=== PATIENT | female | born 1935 | race Caucasian/White ===

== ENCOUNTER 2016-05-29 12:21 | Inpatient (IN) | payer MEDICARE, OTHER ==
[2016-05-29] MEDS ORDERED: LORazepam 0.5 MG Tab PO PRN (13:22)
[2016-05-29] MEDS ORDERED: ceFAZolin 1 GM Vial IV SCH (13:30)
[2016-05-29] MEDS: ceFAZolin 2 GM in Sodium Chloride 0.9% 100 ML IV SCH (16:14)
[2016-05-29] MEDS ORDERED: Sodium Chloride 0.9% 1,000 ML IV SCH (16:15)
[2016-05-29] MEDS: Loperamide 2 MG Cap PO PRN ×4 (16:24→22:55)
[2016-05-29] MEDS: Sodium Chloride 0.9% 10 ML Syringe FLUSH PRN (17:00)
[2016-05-29] MEDS: Aspirin 325 MG Tab.EC PO SCH (21:06)
[2016-05-30] MEDS: ceFAZolin 2 GM in Sodium Chloride 0.9% 100 ML IV SCH ×3 (00:03→15:49)
[2016-05-30] MEDS: Sodium Chloride 0.9% 10 ML Syringe FLUSH PRN ×2 (00:57→09:00)
[2016-05-30] MEDS: Loperamide 2 MG Cap PO PRN ×12 (01:00→23:22)
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
[2016-05-30] MEDS: Levothyroxine 75 MCG Tab PO SCH (05:05)
[2016-05-30] MEDS ORDERED: CHLORTHALIDONE PO SCH (09:00)
[2016-05-30] MEDS ORDERED: ATENOLOL PO SCH (09:00)
[2016-05-30] MEDS: Losartan 100 MG Tab PO SCH (09:31)
[2016-05-30] MEDS: Multivitamins, Therapeutic with Minerals Tab PO SCH (09:31)
[2016-05-30] MEDS: Chlorthalidone 25 MG Tab PO SCH (09:31)
[2016-05-30] MEDS: Cholestyramine/Sucrose Powder 4 GM Packet PO SCH (12:42)
[2016-05-30] MEDS ORDERED: Ondansetron 4 MG Tab.DIS PO PRN (17:54)
[2016-05-30] MEDS: Aspirin 325 MG Tab.EC PO SCH (21:36)
[2016-05-31] MEDS: Sodium Chloride 0.9% 250 ML IV SCH
[2016-05-31] MEDS: ceFAZolin 2 GM in Sodium Chloride 0.9% 100 ML IV SCH ×3 (00:06→15:50)
[2016-05-31] MEDS: Loperamide 2 MG Cap PO PRN ×5 (00:30→06:48)
[2016-05-31] MEDS: Sodium Chloride 0.9% 10 ML Syringe FLUSH PRN ×2 (00:53→22:07)
[2016-05-31] MEDS: Levothyroxine 75 MCG Tab PO SCH (06:10)
[2016-05-31] MEDS: Losartan 100 MG Tab PO SCH (08:10)
[2016-05-31] MEDS: Multivitamins, Therapeutic with Minerals Tab PO SCH (08:10)
[2016-05-31] MEDS: Chlorthalidone 25 MG Tab PO SCH (08:10)
--- NOTE | 2016-05-31 11:39 | PN ---
DATE SEEN: 05/31/2016 SUBJECTIVE: Shirin Lambert is an 80-year-old female, admitted to swing bed at [place]. She has endocarditis from a previous infected port, port is removed. She does have a central line in place, left arm. She is doing well, minimal pain, minimal discomfort, and ambulating without difficulty. Sugars have been comfortable, 93 and 112, we will keep her off her metformin. Present medications intravenously include cefazolin 2 grams q.8 hours. Other medications reviewed and appropriate. OBJECTIVE: VITAL SIGNS: Documented. GENERAL: In good spirits. CHEST: Clear. HEART: Regular. ABDOMEN: Benign. MUSCULOSKELETAL: Port site intact, right mid upper arm. ASSESSMENT: 1. Endocarditis, septicemia. 2. Metastatic colon cancer. PLAN: Intervention care. Close observation. Diarrhea is being addressed. We will stop the antidiarrheal, and we will add cholestyramine. Complementary care and well being. Withhold metformin in the meantime. /[id number] ELISEO/JESSICA
[2016-05-31] MEDS: Cholestyramine/Sucrose Powder 4 GM Packet PO SCH (11:44)
[2016-05-31] MEDS: Aspirin 325 MG Tab.EC PO SCH (20:20)
[2016-05-31] MEDS ORDERED: Lactated Ringers 1,000 ML IV SCH (21:30)
[2016-06-01] MEDS: ceFAZolin 2 GM in Sodium Chloride 0.9% 100 ML IV SCH ×4 (00:04→23:42)
[2016-06-01] MEDS: Saccharomyces Boulardii (Probiotic) 250 MG Cap PO SCH ×4 (00:50→20:49)
[2016-06-01] MEDS ORDERED: Lactated Ringers 1,000 ML IV SCH (01:45)
[2016-06-01] MEDS: Levothyroxine 75 MCG Tab PO SCH (07:12)
[2016-06-01] MEDS: Chlorthalidone 25 MG Tab PO SCH (08:33)
[2016-06-01] MEDS: Losartan 100 MG Tab PO SCH (08:33)
[2016-06-01] MEDS: Multivitamins, Therapeutic with Minerals Tab PO SCH (08:34)
[2016-06-01] MEDS ORDERED: Saccharomyces Boulardii (Probiotic) 250 MG Cap PO SCH (09:00)
--- NOTE | 2016-06-01 10:19 | PN ---
DATE SEEN: 06/01/2016 SUBJECTIVE: Shirin Lambert is an 80-year-old female, admitted for endocarditis and sepsis. Antibiotics will be required till June 22, 2015. Intractable complicated diarrhea presently in place. Imodium under concern due to the frequency and quantity. Required some IV fluids, last evening. LABORATORY STUDIES: On 06/01/2015, comfortable, white count 6500, 11.6 hemoglobin, 34.5 mild lymphocytosis, monocytosis, and normal electrolytes. Microbiology, negative Clostridium difficile present. OBJECTIVE: VITAL SIGNS: Blood pressure 146/87, 70 is the pulse, and pulse ox is 95% on room air. GENERAL: Appears comfortable. NECK: Benign. Thyroid small. CHEST: Clear. HEART: Regular. ABDOMEN: Benign. A bit distended. IMPRESSION: 1. Bacteremia, septicemia, endocarditis. 2. Metastatic colon cancer. PLAN: We will switch to a little bit of Lomotil versus Imodium, probiotic has been ordered. IV fluids will be discontinued. Observation accordingly. /[id number] ELISEO/JESSICA
[2016-06-01] MEDS: Cholestyramine/Sucrose Powder 4 GM Packet PO SCH (12:04)
[2016-06-01] MEDS: Atropine/Diphenoxylate 0.025-2.5 MG Tab PO PRN ×2 (13:15→20:50)
[2016-06-01] MEDS: Sodium Chloride 0.9% 250 ML IV SCH (16:00)
[2016-06-01] MEDS: Sodium Chloride 0.9% 10 ML Syringe FLUSH PRN (16:02)
[2016-06-01] MEDS: Aspirin 325 MG Tab.EC PO SCH (20:49)
[2016-06-02] MEDS: Sodium Chloride 0.9% 10 ML Syringe FLUSH PRN (00:38)
[2016-06-02] MEDS: Acetaminophen 325 MG Tab PO PRN ×2 (00:41→17:36)
[2016-06-02] MEDS: Levothyroxine 75 MCG Tab PO SCH (06:31)
[2016-06-02] MEDS: ceFAZolin 2 GM in Sodium Chloride 0.9% 100 ML IV SCH ×2 (08:13→16:10)
[2016-06-02] MEDS: Chlorthalidone 25 MG Tab PO SCH (08:17)
[2016-06-02] MEDS: Multivitamins, Therapeutic with Minerals Tab PO SCH (08:17)
[2016-06-02] MEDS: Saccharomyces Boulardii (Probiotic) 250 MG Cap PO SCH ×3 (08:17→20:12)
[2016-06-02] MEDS: Losartan 100 MG Tab PO SCH (08:17)
--- NOTE | 2016-06-02 11:26 | PN ---
DATE SEEN: 06/02/2016 SUBJECTIVE: Shirin Swenson is an 80-year-old female, admitted for long- term antibiotic therapy, 06/21/2016. She had an infected right port. Removed, packed daily, PICC line, right enterotomy. Complains of some moderate pain in the right shoulder region. OBJECTIVE: GENERAL: PICC line without complicating issue, not warm, nontender, no discharge. Previous port site right upper chest without complicating issues. CHEST: Clear. HEART: Regular. ABDOMEN: Benign. ASSESSMENT: 1. Right shoulder pain. 2. Endocarditis, sepsis. PLAN: Medications and treatment in place, we will obtain x-rays of the right shoulder. /[id number] ELISEO/JESSICA
[2016-06-02] MEDS: Cholestyramine/Sucrose Powder 4 GM Packet PO SCH (12:31)
[2016-06-02] MEDS: Aspirin 325 MG Tab.EC PO SCH (20:11)
[2016-06-02] MEDS: Acetaminophen/Codeine 300-30 MG Tab PO PRN (21:16)
[2016-06-03] MEDS: ceFAZolin 2 GM in Sodium Chloride 0.9% 100 ML IV SCH ×2 (00:13→08:28)
[2016-06-03] MEDS: Acetaminophen/Codeine 300-30 MG Tab PO PRN (00:39)
[2016-06-03] MEDS ORDERED: Ondansetron 4 MG/2 ML SDV IVPUSH PRN (05:35)
[2016-06-03] MEDS ORDERED: HYDROmorphone 2 MG/ML SDV IVPUSH PRN (05:38)
[2016-06-03] MEDS: Levothyroxine 75 MCG Tab PO SCH (05:52)
[2016-06-03] MEDS: HYDROmorphone 2 MG/ML SDV IVPUSH PRN (05:54)
[2016-06-03] MEDS: Sodium Chloride 0.9% 10 ML Syringe FLUSH PRN ×2 (05:55→17:14)
[2016-06-03] MEDS: Chlorthalidone 25 MG Tab PO SCH (09:14)
[2016-06-03] MEDS: Losartan 100 MG Tab PO SCH (09:14)
[2016-06-03] MEDS: Saccharomyces Boulardii (Probiotic) 250 MG Cap PO SCH ×3 (09:16→20:44)
[2016-06-03] MEDS: Multivitamins, Therapeutic with Minerals Tab PO SCH (09:17)
[2016-06-03] MEDS: HYDROmorphone 2 MG Tab PO PRN ×3 (09:30→19:18)
--- NOTE | 2016-06-03 10:30 | CR ---
INDICATION: Right shoulder pain. RIGHT SHOULDER: Five views of the right shoulder revealed moderately severe hypertrophic degenerative changes at the glenohumeral joint. The glenohumeral joint space appears to be fairly well maintained. Moderate degenerative changes are noted at the AC joint additionally. The degenerative changes include subchondral cystic changes and sclerosis. Additionally, there is impingement with sclerosis of the undersurface of the acromion and adjacent humerus due to impingement of the humerus on the acromion. The areas of sclerosis present are most likely degenerative in nature. The possibility of blastic metastatic disease is felt to be much less likely. PICC line is noted in place with its tip in adequate position at the level of the aortopulmonary window in the area of the SVC. IMPRESSION: Osteoarthritis with impingement. Report was called to Dr. Fay at 0941 hours, 06/03/2016. YOVANA
[2016-06-03] MEDS: Cholestyramine/Sucrose Powder 4 GM Packet PO SCH (13:04)
[2016-06-03] MEDS: ceFAZolin 2 GM in Premix Bag 1 BAG IV SCH (16:23)
[2016-06-03] MEDS: Aspirin 325 MG Tab.EC PO SCH (20:44)
[2016-06-04] MEDS: Levothyroxine 75 MCG Tab PO SCH (06:07)
[2016-06-04] MEDS: HYDROmorphone 2 MG/ML SDV IVPUSH PRN (07:36)
[2016-06-04] MEDS: Sodium Chloride 0.9% 10 ML Syringe FLUSH PRN ×3 (07:37→16:52)
[2016-06-04] MEDS: ceFAZolin 2 GM in Premix Bag 1 BAG IV SCH ×4 (07:37→16:05)
[2016-06-04] MEDS: Chlorthalidone 25 MG Tab PO SCH (09:59)
[2016-06-04] MEDS: Losartan 100 MG Tab PO SCH (10:00)
[2016-06-04] MEDS: Multivitamins, Therapeutic with Minerals Tab PO SCH (10:01)
[2016-06-04] MEDS: Saccharomyces Boulardii (Probiotic) 250 MG Cap PO SCH ×3 (10:01→21:29)
[2016-06-04] MEDS: Acetaminophen/Codeine 300-30 MG Tab PO PRN ×2 (11:23→17:35)
--- NOTE | 2016-06-04 12:38 | PN ---
DATE SEEN: 06/04/2016 SUBJECTIVE: Shirin Lambert is an 80-year-old female, in swing bed. IV antibiotics for endocarditis. [place] some right shoulder pain. Radiographs reveal degenerative changes only. No signs of metastatic disease. We will plan for injection tomorrow, 06/06/2015. Risks and benefits accordingly. Otherwise, doing well. We will discontinue Dilaudid and switch to Tylenol with Codeine for pain control. Cooperative care and well being. Exam otherwise stable. /[id number] /HANNAHL
[2016-06-04] MEDS: Cholestyramine/Sucrose Powder 4 GM Packet PO SCH (12:56)
[2016-06-04] MEDS: Aspirin 325 MG Tab.EC PO SCH (21:29)
[2016-06-04] MEDS: Nystatin Crm 15 GM Tube TOP SCH (22:11)
[2016-06-05] MEDS: ceFAZolin 2 GM in Premix Bag 1 BAG IV SCH ×3 (00:15→15:56)
[2016-06-05] MEDS: Sodium Chloride 0.9% 250 ML IV SCH (00:21)
[2016-06-05] MEDS: Sodium Chloride 0.9% 10 ML Syringe FLUSH PRN ×2 (01:09→08:06)
[2016-06-05] MEDS: Levothyroxine 75 MCG Tab PO SCH (06:07)
[2016-06-05] MEDS: Nystatin Crm 15 GM Tube TOP SCH ×2 (10:09→21:08)
[2016-06-05] MEDS: Chlorthalidone 25 MG Tab PO SCH (10:11)
[2016-06-05] MEDS: Losartan 100 MG Tab PO SCH (10:16)
[2016-06-05] MEDS: Saccharomyces Boulardii (Probiotic) 250 MG Cap PO SCH ×3 (10:16→21:08)
[2016-06-05] MEDS: Multivitamins, Therapeutic with Minerals Tab PO SCH (10:17)
--- NOTE | 2016-06-05 12:01 | PN ---
DATE SEEN: 06/05/2016 SUBJECTIVE: Shirin Lambert is an 80-year-old female, seen in swing bed. IV antibiotics for endocarditis, doing well. Complicated left shoulder pain. Injection to be performed and provided today at right shoulder. Otherwise, doing well. No other particular complaints or concerns. OBJECTIVE: CHEST: Clear. HEART: Regular. ABDOMEN: Reproducible, tenderness over the shoulder particularly with abduction of the shoulder. ASSESSMENT: 1. Endocarditis, on therapy until June 21. 2. Shoulder pain. PLAN: Injection upcoming and planned. /[id number] /JESSICA
[2016-06-05] MEDS: Cholestyramine/Sucrose Powder 4 GM Packet PO SCH (13:23)
[2016-06-05] MEDS: Aspirin 325 MG Tab.EC PO SCH (21:08)
[2016-06-06] MEDS: Sodium Chloride 0.9% 250 ML IV SCH ×2 (00:08→08:12)
[2016-06-06] MEDS: ceFAZolin 2 GM in Premix Bag 1 BAG IV SCH ×3 (00:10→16:07)
[2016-06-06] MEDS: Sodium Chloride 0.9% 10 ML Syringe FLUSH PRN ×3 (00:59→16:08)
[2016-06-06] MEDS: Levothyroxine 75 MCG Tab PO SCH (06:10)
[2016-06-06] MEDS: Chlorthalidone 25 MG Tab PO SCH (08:17)
[2016-06-06] MEDS: Losartan 100 MG Tab PO SCH (08:18)
[2016-06-06] MEDS: Nystatin Crm 15 GM Tube TOP SCH ×2 (08:18→20:35)
[2016-06-06] MEDS: Saccharomyces Boulardii (Probiotic) 250 MG Cap PO SCH ×3 (08:18→20:34)
[2016-06-06] MEDS: Multivitamins, Therapeutic with Minerals Tab PO SCH (08:19)
--- NOTE | 2016-06-06 10:25 | PN ---
DATE SEEN: 06/06/2016 Shirin Lambert is an 80-year-old female, admitted for antibiotic therapy. She had endocarditis, positive blood cultures, infected port, is on a 1-month course of therapy. Antibiotics until 06/21. We injected the right shoulder yesterday, feels much better pain control. Continue with cooperative care and well being. Home health referral for palliative care under consideration. /[id number] ELISEO/JESSICA
[2016-06-06] MEDS: Cholestyramine/Sucrose Powder 4 GM Packet PO SCH (14:55)
[2016-06-06] MEDS: Aspirin 325 MG Tab.EC PO SCH (20:34)
[2016-06-07] MEDS: ceFAZolin 2 GM in Premix Bag 1 BAG IV SCH ×3 (00:19→16:28)
[2016-06-07] MEDS: Sodium Chloride 0.9% 10 ML Syringe FLUSH PRN ×2 (01:10→07:57)
[2016-06-07] MEDS: Levothyroxine 75 MCG Tab PO SCH (05:34)
[2016-06-07] MEDS: Sodium Chloride 0.9% 250 ML IV SCH (07:58)
[2016-06-07] MEDS: Losartan 100 MG Tab PO SCH (08:03)
[2016-06-07] MEDS: Multivitamins, Therapeutic with Minerals Tab PO SCH (08:03)
[2016-06-07] MEDS: Chlorthalidone 25 MG Tab PO SCH (08:04)
[2016-06-07] MEDS: Nystatin Crm 15 GM Tube TOP SCH ×2 (08:04→20:22)
[2016-06-07] MEDS: Saccharomyces Boulardii (Probiotic) 250 MG Cap PO SCH ×3 (08:04→20:21)
[2016-06-07] MEDS: Cholestyramine/Sucrose Powder 4 GM Packet PO SCH (13:15)
[2016-06-07] MEDS: Aspirin 325 MG Tab.EC PO SCH (20:21)
[2016-06-08] MEDS: ceFAZolin 2 GM in Premix Bag 1 BAG IV SCH ×3 (00:18→15:48)
[2016-06-08] MEDS: Sodium Chloride 0.9% 10 ML Syringe FLUSH PRN ×2 (00:21→08:06)
[2016-06-08] MEDS: Levothyroxine 75 MCG Tab PO SCH (06:31)
[2016-06-08] MEDS: Saccharomyces Boulardii (Probiotic) 250 MG Cap PO SCH ×3 (08:04→20:11)
[2016-06-08] MEDS: Multivitamins, Therapeutic with Minerals Tab PO SCH (08:04)
[2016-06-08] MEDS: Chlorthalidone 25 MG Tab PO SCH (08:05)
[2016-06-08] MEDS: Nystatin Crm 15 GM Tube TOP SCH ×2 (08:05→20:12)
[2016-06-08] MEDS: Losartan 100 MG Tab PO SCH (08:06)
[2016-06-08] MEDS: Sodium Chloride 0.9% 250 ML IV SCH (08:07)
[2016-06-08] MEDS: Cholestyramine/Sucrose Powder 4 GM Packet PO SCH (12:11)
[2016-06-08] MEDS: Aspirin 325 MG Tab.EC PO SCH (20:11)
[2016-06-09] MEDS: ceFAZolin 2 GM in Premix Bag 1 BAG IV SCH ×4 (00:56→23:36)
[2016-06-09] MEDS: Sodium Chloride 0.9% 10 ML Syringe FLUSH PRN ×3 (01:02→23:40)
[2016-06-09] MEDS: Levothyroxine 75 MCG Tab PO SCH (06:02)
[2016-06-09] MEDS: Chlorthalidone 25 MG Tab PO SCH (08:11)
[2016-06-09] MEDS: Multivitamins, Therapeutic with Minerals Tab PO SCH (08:11)
[2016-06-09] MEDS: Losartan 100 MG Tab PO SCH (08:11)
[2016-06-09] MEDS: Nystatin Crm 15 GM Tube TOP SCH ×2 (08:12→21:06)
[2016-06-09] MEDS: Saccharomyces Boulardii (Probiotic) 250 MG Cap PO SCH ×3 (08:12→21:03)
[2016-06-09] MEDS: Sodium Chloride 0.9% 250 ML IV SCH (08:13)
[2016-06-09] MEDS: Acetaminophen/Codeine 300-30 MG Tab PO PRN ×2 (11:19→23:41)
[2016-06-09] MEDS: Cholestyramine/Sucrose Powder 4 GM Packet PO SCH (12:09)
[2016-06-09] MEDS: Triamcinolone Acetonide 0.1% Dental Paste 5 GM Tube DENT SCH ×3 (12:39→21:06)
[2016-06-09] MEDS: Aspirin 325 MG Tab.EC PO SCH (21:03)
[2016-06-10] MEDS: Levothyroxine 75 MCG Tab PO SCH (06:40)
[2016-06-10] MEDS: Sodium Chloride 0.9% 10 ML Syringe FLUSH PRN ×3 (06:52→16:50)
[2016-06-10] MEDS: ceFAZolin 2 GM in Premix Bag 1 BAG IV SCH ×2 (08:23→16:47)
[2016-06-10] MEDS: Sodium Chloride 0.9% 250 ML IV SCH (08:23)
[2016-06-10] MEDS: Multivitamins, Therapeutic with Minerals Tab PO SCH (08:37)
[2016-06-10] MEDS: Saccharomyces Boulardii (Probiotic) 250 MG Cap PO SCH ×3 (08:37→20:59)
[2016-06-10] MEDS: Losartan 100 MG Tab PO SCH (08:37)
[2016-06-10] MEDS: Chlorthalidone 25 MG Tab PO SCH (08:38)
[2016-06-10] MEDS: Triamcinolone Acetonide 0.1% Dental Paste 5 GM Tube DENT SCH ×4 (08:38→21:01)
[2016-06-10] MEDS: Nystatin Crm 15 GM Tube TOP SCH ×2 (08:38→21:00)
[2016-06-10] MEDS: Cholestyramine/Sucrose Powder 4 GM Packet PO SCH (12:54)
[2016-06-10] MEDS: Acetaminophen/Codeine 300-30 MG Tab PO PRN (19:46)
[2016-06-10] MEDS: Aspirin 325 MG Tab.EC PO SCH (21:00)
[2016-06-11] MEDS: ceFAZolin 2 GM in Premix Bag 1 BAG IV SCH ×4 (00:30→23:36)
[2016-06-11] MEDS: Sodium Chloride 0.9% 10 ML Syringe FLUSH PRN ×4 (01:41→23:37)
[2016-06-11] MEDS: Levothyroxine 75 MCG Tab PO SCH (06:31)
[2016-06-11] MEDS: Sodium Chloride 0.9% 250 ML IV SCH (09:00)
[2016-06-11] MEDS: Chlorthalidone 25 MG Tab PO SCH (09:07)
[2016-06-11] MEDS: Saccharomyces Boulardii (Probiotic) 250 MG Cap PO SCH ×3 (09:08→20:15)
[2016-06-11] MEDS: Multivitamins, Therapeutic with Minerals Tab PO SCH (09:08)
[2016-06-11] MEDS: Losartan 100 MG Tab PO SCH (09:08)
[2016-06-11] MEDS: Triamcinolone Acetonide 0.1% Dental Paste 5 GM Tube DENT SCH ×4 (09:09→20:16)
[2016-06-11] MEDS: Nystatin Crm 15 GM Tube TOP SCH ×2 (10:03→20:15)
[2016-06-11] MEDS: Cholestyramine/Sucrose Powder 4 GM Packet PO SCH (12:59)
[2016-06-11] MEDS: Aspirin 325 MG Tab.EC PO SCH (20:15)
[2016-06-11] MEDS: Acetaminophen/Codeine 300-30 MG Tab PO PRN (22:40)
[2016-06-12] MEDS: Sodium Chloride 0.9% 10 ML Syringe FLUSH PRN ×4 (00:29→23:57)
[2016-06-12] MEDS: Levothyroxine 75 MCG Tab PO SCH (05:53)
[2016-06-12] MEDS: Sodium Chloride 0.9% 250 ML IV SCH (07:48)
[2016-06-12] MEDS: ceFAZolin 2 GM in Premix Bag 1 BAG IV SCH ×3 (07:50→23:58)
[2016-06-12] MEDS: Triamcinolone Acetonide 0.1% Dental Paste 5 GM Tube DENT SCH ×4 (08:49→20:11)
[2016-06-12] MEDS: Nystatin Crm 15 GM Tube TOP SCH ×2 (08:49→20:11)
[2016-06-12] MEDS: Losartan 100 MG Tab PO SCH (08:49)
[2016-06-12] MEDS: Chlorthalidone 25 MG Tab PO SCH (08:50)
[2016-06-12] MEDS: Saccharomyces Boulardii (Probiotic) 250 MG Cap PO SCH ×3 (08:50→20:10)
[2016-06-12] MEDS: Multivitamins, Therapeutic with Minerals Tab PO SCH (08:51)
[2016-06-12] MEDS: Cholestyramine/Sucrose Powder 4 GM Packet PO SCH (13:00)
[2016-06-12] MEDS: Aspirin 325 MG Tab.EC PO SCH (20:10)
[2016-06-13] MEDS: Sodium Chloride 0.9% 10 ML Syringe FLUSH PRN ×3 (00:50→15:37)
[2016-06-13] MEDS: Levothyroxine 75 MCG Tab PO SCH (06:12)
[2016-06-13] MEDS: ceFAZolin 2 GM in Premix Bag 1 BAG IV SCH ×2 (08:07→15:36)
[2016-06-13] MEDS: Chlorthalidone 25 MG Tab PO SCH (08:08)
[2016-06-13] MEDS: Losartan 100 MG Tab PO SCH (08:08)
[2016-06-13] MEDS: Nystatin Crm 15 GM Tube TOP SCH ×2 (08:09→21:32)
[2016-06-13] MEDS: Triamcinolone Acetonide 0.1% Dental Paste 5 GM Tube DENT SCH ×4 (08:09→21:33)
[2016-06-13] MEDS: Saccharomyces Boulardii (Probiotic) 250 MG Cap PO SCH ×3 (08:09→21:32)
[2016-06-13] MEDS: Multivitamins, Therapeutic with Minerals Tab PO SCH (08:10)
[2016-06-13] MEDS: Sodium Chloride 0.9% 250 ML IV SCH (08:13)
[2016-06-13] MEDS: Cholestyramine/Sucrose Powder 4 GM Packet PO SCH (11:39)
[2016-06-13] MEDS: Acetaminophen/Codeine 300-30 MG Tab PO PRN (20:50)
[2016-06-13] MEDS: Aspirin 325 MG Tab.EC PO SCH (21:31)
[2016-06-14] MEDS: ceFAZolin 2 GM in Premix Bag 1 BAG IV SCH ×4 (00:04→23:57)
[2016-06-14] MEDS: Sodium Chloride 0.9% 10 ML Syringe FLUSH PRN ×6 (00:10→23:55)
[2016-06-14] MEDS: Levothyroxine 75 MCG Tab PO SCH (07:29)
[2016-06-14] MEDS: Sodium Chloride 0.9% 250 ML IV SCH (08:40)
[2016-06-14] MEDS: Losartan 100 MG Tab PO SCH (08:50)
[2016-06-14] MEDS: Saccharomyces Boulardii (Probiotic) 250 MG Cap PO SCH ×3 (08:51→21:02)
[2016-06-14] MEDS: Nystatin Crm 15 GM Tube TOP SCH ×2 (08:52→21:02)
[2016-06-14] MEDS: Triamcinolone Acetonide 0.1% Dental Paste 5 GM Tube DENT SCH ×5 (08:52→21:03)
[2016-06-14] MEDS: Chlorthalidone 25 MG Tab PO SCH (08:52)
[2016-06-14] MEDS: Multivitamins, Therapeutic with Minerals Tab PO SCH (08:53)
[2016-06-14] MEDS: Cholestyramine/Sucrose Powder 4 GM Packet PO SCH (12:23)
[2016-06-14] MEDS: Aspirin 325 MG Tab.EC PO SCH (21:01)
[2016-06-14] MEDS: Acetaminophen/Codeine 300-30 MG Tab PO PRN (23:00)
[2016-06-15] MEDS: Levothyroxine 75 MCG Tab PO SCH (06:16)
[2016-06-15] MEDS: ceFAZolin 2 GM in Premix Bag 1 BAG IV SCH ×3 (08:12→23:33)
[2016-06-15] MEDS: Sodium Chloride 0.9% 250 ML IV SCH (08:12)
[2016-06-15] MEDS: Sodium Chloride 0.9% 10 ML Syringe FLUSH PRN ×3 (08:12→23:31)
[2016-06-15] MEDS: Multivitamins, Therapeutic with Minerals Tab PO SCH (08:19)
[2016-06-15] MEDS: Losartan 100 MG Tab PO SCH (08:19)
[2016-06-15] MEDS: Chlorthalidone 25 MG Tab PO SCH (08:20)
[2016-06-15] MEDS: Saccharomyces Boulardii (Probiotic) 250 MG Cap PO SCH ×3 (08:20→20:45)
[2016-06-15] MEDS: Nystatin Crm 15 GM Tube TOP SCH (08:20)
[2016-06-15] MEDS: Triamcinolone Acetonide 0.1% Dental Paste 5 GM Tube DENT SCH (08:21)
[2016-06-15] MEDS: Cholestyramine/Sucrose Powder 4 GM Packet PO SCH (11:50)
[2016-06-15] MEDS: Aspirin 325 MG Tab.EC PO SCH (20:45)
[2016-06-15] MEDS: Betamethasone Dipropionate/Clotrimazole 0.05-1% Crm 15 GM Tube TOP SCH (23:06)
[2016-06-16] MEDS: Sodium Chloride 0.9% 10 ML Syringe FLUSH PRN ×6 (00:24→23:54)
[2016-06-16] MEDS: Levothyroxine 75 MCG Tab PO SCH (06:26)
[2016-06-16] MEDS: Sodium Chloride 0.9% 250 ML IV SCH (07:40)
[2016-06-16] MEDS: ceFAZolin 2 GM in Premix Bag 1 BAG IV SCH ×3 (07:40→23:57)
[2016-06-16] MEDS: Losartan 100 MG Tab PO SCH (08:34)
[2016-06-16] MEDS: Multivitamins, Therapeutic with Minerals Tab PO SCH (08:34)
[2016-06-16] MEDS: Saccharomyces Boulardii (Probiotic) 250 MG Cap PO SCH ×3 (08:35→21:47)
[2016-06-16] MEDS: Betamethasone Dipropionate/Clotrimazole 0.05-1% Crm 15 GM Tube TOP SCH ×2 (08:35→21:48)
[2016-06-16] MEDS: Chlorthalidone 25 MG Tab PO SCH (08:35)
[2016-06-16] MEDS: Cholestyramine/Sucrose Powder 4 GM Packet PO SCH (11:22)
[2016-06-16] MEDS: Aspirin 325 MG Tab.EC PO SCH (21:45)
[2016-06-16] MEDS: Acetaminophen/Codeine 300-30 MG Tab PO PRN (21:53)
[2016-06-17] MEDS: Levothyroxine 75 MCG Tab PO SCH (06:12)
[2016-06-17] MEDS: Sodium Chloride 0.9% 250 ML IV SCH (08:05)
[2016-06-17] MEDS: ceFAZolin 2 GM in Premix Bag 1 BAG IV SCH ×3 (08:05→23:43)
[2016-06-17] MEDS: Sodium Chloride 0.9% 10 ML Syringe FLUSH PRN ×3 (08:05→23:40)
[2016-06-17] MEDS: Chlorthalidone 25 MG Tab PO SCH (08:58)
[2016-06-17] MEDS: Losartan 100 MG Tab PO SCH (08:59)
[2016-06-17] MEDS: Saccharomyces Boulardii (Probiotic) 250 MG Cap PO SCH ×3 (08:59→21:29)
[2016-06-17] MEDS: Betamethasone Dipropionate/Clotrimazole 0.05-1% Crm 15 GM Tube TOP SCH (09:00)
[2016-06-17] MEDS: Multivitamins, Therapeutic with Minerals Tab PO SCH (09:01)
[2016-06-17] MEDS: Cholestyramine/Sucrose Powder 4 GM Packet PO SCH (13:31)
[2016-06-17] MEDS: Aspirin 325 MG Tab.EC PO SCH (21:29)
[2016-06-17] MEDS: Betamethasone Dipropionate/Clotrimazole 0.05-1% Crm 45 GM Tube TOP SCH (21:30)
[2016-06-18] MEDS: Levothyroxine 75 MCG Tab PO SCH (05:55)
[2016-06-18] MEDS: Sodium Chloride 0.9% 10 ML Syringe FLUSH PRN ×2 (08:50→17:34)
[2016-06-18] MEDS: ceFAZolin 2 GM in Premix Bag 1 BAG IV SCH ×3 (08:51→23:39)
[2016-06-18] MEDS: Sodium Chloride 0.9% 250 ML IV SCH (08:51)
[2016-06-18] MEDS: Chlorthalidone 25 MG Tab PO SCH (09:07)
[2016-06-18] MEDS: Losartan 100 MG Tab PO SCH (09:07)
[2016-06-18] MEDS: Saccharomyces Boulardii (Probiotic) 250 MG Cap PO SCH ×3 (09:08→21:30)
[2016-06-18] MEDS: Multivitamins, Therapeutic with Minerals Tab PO SCH (09:09)
[2016-06-18] MEDS: Betamethasone Dipropionate/Clotrimazole 0.05-1% Crm 45 GM Tube TOP SCH ×2 (10:42→21:31)
[2016-06-18] MEDS: Cholestyramine/Sucrose Powder 4 GM Packet PO SCH (12:25)
[2016-06-18] MEDS: Aspirin 325 MG Tab.EC PO SCH (21:30)
[2016-06-18] MEDS: Acetaminophen/Codeine 300-30 MG Tab PO PRN (21:54)
[2016-06-19] MEDS: Levothyroxine 75 MCG Tab PO SCH (06:28)
[2016-06-19] MEDS: ceFAZolin 2 GM in Premix Bag 1 BAG IV SCH ×2 (07:25→16:08)
[2016-06-19] MEDS: Sodium Chloride 0.9% 10 ML Syringe FLUSH PRN ×3 (07:26→17:07)
[2016-06-19] MEDS: Chlorthalidone 25 MG Tab PO SCH (08:14)
[2016-06-19] MEDS: Saccharomyces Boulardii (Probiotic) 250 MG Cap PO SCH ×3 (08:15→20:39)
[2016-06-19] MEDS: Betamethasone Dipropionate/Clotrimazole 0.05-1% Crm 45 GM Tube TOP SCH ×2 (08:15→20:39)
[2016-06-19] MEDS: Losartan 100 MG Tab PO SCH (08:15)
[2016-06-19] MEDS: Multivitamins, Therapeutic with Minerals Tab PO SCH (08:16)
[2016-06-19] MEDS: Cholestyramine/Sucrose Powder 4 GM Packet PO SCH (11:57)
[2016-06-19] MEDS: Aspirin 325 MG Tab.EC PO SCH (20:39)
[2016-06-19] MEDS: Acetaminophen/Codeine 300-30 MG Tab PO PRN (20:44)
[2016-06-20] MEDS: Sodium Chloride 0.9% 250 ML IV SCH ×2 (00:03→23:39)
[2016-06-20] MEDS: ceFAZolin 2 GM in Premix Bag 1 BAG IV SCH ×4 (00:03→23:36)
[2016-06-20] MEDS: Sodium Chloride 0.9% 10 ML Syringe FLUSH PRN ×4 (00:56→23:36)
[2016-06-20] MEDS: Levothyroxine 75 MCG Tab PO SCH (05:44)
[2016-06-20] MEDS: Chlorthalidone 25 MG Tab PO SCH (08:07)
[2016-06-20] MEDS: Losartan 100 MG Tab PO SCH (08:07)
[2016-06-20] MEDS: Betamethasone Dipropionate/Clotrimazole 0.05-1% Crm 45 GM Tube TOP SCH ×2 (08:07→21:06)
[2016-06-20] MEDS: Saccharomyces Boulardii (Probiotic) 250 MG Cap PO SCH ×3 (08:07→21:05)
[2016-06-20] MEDS: Multivitamins, Therapeutic with Minerals Tab PO SCH (08:08)
[2016-06-20] MEDS: Cholestyramine/Sucrose Powder 4 GM Packet PO SCH (14:01)
[2016-06-20] MEDS: Aspirin 325 MG Tab.EC PO SCH (21:05)
[2016-06-21] MEDS: Sodium Chloride 0.9% 10 ML Syringe FLUSH PRN (00:29)
[2016-06-21] MEDS: Levothyroxine 75 MCG Tab PO SCH (06:00)
[2016-06-21] MEDS: ceFAZolin 2 GM in Premix Bag 1 BAG IV SCH ×2 (07:36→15:17)
--- NOTE | 2016-06-21 08:29 | PCM.PN ---
- General Info Date of Service: 06/21/16 Admission Dx/Problem (Free Text): This patient is without complaints. She denies chest pain, shortness of breath , fevers, chills, leg swelling. - Patient Data Vitals - most recent: Last Vital Signs Temp 96.8 F 06/20/16 08:00 Pulse 65 06/20/16 08:06 Resp 18 06/20/16 08:00 BP 162/75 H 06/20/16 08:07 Pulse Ox 96 06/20/16 08:00 Weight - most recent: 175 lb 3.2 oz I&O - last 24 hours: Intake & Output 06/20/16 06/21/16 06/21/16 22:59 06:59 14:59 Intake Total 130 80 Balance 130 80 Lab Results last 24 hrs: Laboratory Results - last 24 hr 06/21/16 Range/Units 06:02 POC Glucose 101 (80-116) mg/dL Med Orders - Current: Current Medications Acetaminophen/Codeine Phosphate (Tylenol With Codeine No.3 300mg/30mg) 2 tab PO Q6H PRN PRN Reason: shoulder pain Last Admin: 06/19/16 20:44 Dose: 2 tab Aspirin (Ecotrin) 325 mg PO BEDTIME [facility] Last Admin: 06/20/16 21:05 Dose: 325 mg Atenolol (Tenormin) 100 mg PO DAILY [facility] Last Admin: 06/20/16 08:06 Dose: 100 mg Betamethasone/Clotrimazole (Lotrisone) 0 gm TOP BID [facility] Last Admin: 06/20/16 21:06 Dose: 1 applic Chlorthalidone (Chlorthalidone) 25 mg PO DAILY [facility] Last Admin: 06/20/16 08:07 Dose: 25 mg Cholestyramine Resin (Cholestyramine Packet) 4 gm PO DAILY@1200 [facility] Last Admin: 06/20/16 14:01 Dose: 4 gm Diphenoxylate HCl/Atropine (Lomotil 0.025-2.5 Mg) 1 tab PO QID PRN PRN Reason: Diarrhea Last Admin: 06/01/16 20:50 Dose: 1 tab Heparin Sodium (Porcine) (Heparin Lock Flush 100 Units/Ml Syringe) 300 units FLUSH ASDIRECTED PRN PRN Reason: to keep vein open Last Admin: 06/19/16 08:38 Dose: 300 units Heparin Sodium (Porcine) (Heparin Lock Flush 100 Units/Ml Syringe) 300 units FLUSH Q8H [facility] Last Admin: 06/21/16 00:28 Dose: 300 units Sodium Chloride (Normal Saline) 250 mls @ 30 mls/hr IV ASDIRECTED [facility] PRN Reason: KVO Last Admin: 06/20/16 23:39 Dose: 100 mls/hr Cefazolin Sodium/Dextrose 2 gm (/ Premix) 50 mls @ 100 mls/hr IV Q8H [facility] Stop: 06/21/16 17:00 Last Admin: 06/21/16 07:36 Dose: 100 mls/hr Levothyroxine Sodium (Levothyroxine) 75 mcg PO DAILY@0600 [facility] Last Admin: 06/21/16 06:00 Dose: 75 mcg Lorazepam (Ativan) 0.5 mg PO BEDTIME PRN PRN Reason: Sleep Losartan Potassium (Cozaar) 100 mg PO DAILY [facility] Last Admin: 06/20/16 08:07 Dose: 100 mg Lovastatin (Mevacor) 20 mg PO BEDTIME [facility] Last Admin: 06/20/16 21:06 Dose: 20 mg Multivitamins/Minerals (Vitamins And Minerals) 1 tab PO DAILY [facility] Last Admin: 06/20/16 08:08 Dose: 1 tab Ondansetron HCl (Zofran Odt) 4 mg PO Q4H PRN PRN Reason: Nausea/Vomiting Last Admin: 05/30/16 18:00 Dose: 4 mg Ondansetron HCl (Zofran) 4 mg IVPUSH Q4H PRN PRN Reason: Nausea/Vomiting Saccharomyces Boulardii (Florastor) 250 mg PO TID [facility] Last Admin: 06/20/16 21:05 Dose: 250 mg Sodium Chloride (Saline Flush) 10 ml FLUSH ASDIRECTED PRN PRN Reason: Keep Vein Open Last Admin: 06/21/16 00:29 Dose: 10 ml Discontinued Medications Acetaminophen (Tylenol) 650 mg PO BID PRN PRN Reason: PAIN Last Admin: 06/02/16 17:36 Dose: 650 mg Acetaminophen/Codeine Phosphate (Tylenol With Codeine No.3 300mg/30mg) 2 tab PO QID PRN PRN Reason: Pain Last Admin: 06/03/16 00:39 Dose: 2 tab Betamethasone/Clotrimazole (Lotrisone) 0 gm TOP BID [facility] Last Admin: 06/17/16 09:00 Dose: 1 applic Hydromorphone HCl (Dilaudid) 0.5 mg IVPUSH Q2H PRN PRN Reason: Pain (severe 7-10) Last Admin: 06/04/16 07:36 Dose: 0.5 mg Hydromorphone HCl (Dilaudid) 1 mg IVPUSH Q2H PRN PRN Reason: Pain (severe 7-10) Hydromorphone HCl (Dilaudid) 2 mg PO Q4H PRN PRN Reason: bone pain Last Admin: 06/03/16 19:18 Dose: 2 mg Cefazolin Sodium 2 gm/ Sodium (Chloride) 100 mls @ 200 mls/hr IV Q8H [facility] Stop: 06/03/16 09:00 Last Admin: 06/03/16 08:28 Dose: 200 mls/hr Sodium Chloride (Normal Saline) 1,000 mls @ 100 mls/hr IV ASDIRECTED [facility] Lactated Ringer's (Ringers, Lactated) 1,000 mls @ 500 mls/hr IV ASDIRECTED [facility] Last Admin: 05/31/16 22:07 Dose: 500 mls/hr Lactated Ringer's (Ringers, Lactated) 1,000 mls @ 100 mls/hr IV ASDIRECTED [facility] Loperamide HCl (Imodium) 2 - 4 mg PO Q2H PRN PRN Reason: Diarrhea Last Admin: 05/31/16 06:48 Dose: 2 mg Nystatin (Nystatin Crm) 0 gm TOP BID [facility] Last Admin: 06/15/16 08:20 Dose: Not Given Saccharomyces Boulardii (Florastor) 250 mg PO TID [facility] Triamcinolone Acetonide (Oralone 0.1% Dental Paste) 0 gm DENT QID [facility] Last Admin: 06/15/16 08:21 Dose: Not Given - Exam General: alert, oriented, cooperative Lungs: Clear to auscultation, Normal respiratory effort Cardiovascular: Regular Rate, Regular Rhythm. No: No Murmurs Extremities: no edema - Problem List & Annotations (1) Endocarditis SNOMED Code(s): 67658336, 50507871 Code(s): I38 - ENDOCARDITIS, VALVE UNSPECIFIED Status: Acute Current Visit: Yes - Problem List Review Problem List Initiated/Reviewed/Updated: Yes - Plan Plan:: Discharge to home on home health later today after she's done with her 4 PM antibiotics. No antibiotics at home.
--- NOTE | 2016-06-21 08:36 | PCM.DCSUM1 ---
Discharge Summary - Hospital Course Free Text/Narrative:: Hospital course-patient did well. She's on IV antibiotics per infectious disease protocol for the whole time she was here from May 29 2 June 21. She is on cefazolin every 8 hours IV. Her wound site was cleaned and packed. She did well. Reculture blood and blood cultures are negative. Patient was sent home on home health for wound teaching, packing and medical management. There was no followup with ID. She has followup with oncology on 07/04/2016 because of a metastatic colon cancer. 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 Her wound where she had a pacemaker placed. She was admitted for screened her for IV antibiotics with cefazolin every 8 hours IV. - Discharge Data Discharge Date: 06/21/16 Discharge Disposition: Home, W Home Health Agency 06 Condition: Good - Discharge Diagnosis/Problem(s) (1) Endocarditis SNOMED Code(s): 53362897, 55098944 ICD Code: I38 - ENDOCARDITIS, VALVE UNSPECIFIED Status: Acute Current Visit: Yes Qualifiers: Endocarditis type: infective Infective endocarditis organism: bacterial Chronicity: acute Qualified Code(s): I33.0 - Acute and subacute infective endocarditis - Patient Summary/Data Operative Procedure(s) Performed: right gilma colectomy Consults: Consultations 06/05/16 11:07 Consult to Palliative Care [CONS] Routine Comment: Physician Instructions: 06/06/16 09:42 Consult to Hospice [CONS] Routine Comment: Physician Instructions: MESTATIC CANCER STABLE NO FURTHER CANCER RX Reason for Consult: CONSIDERATION FOR PALLIATIVE CARE REFERRRRAL - Patient Instructions Diet: Regular Diet as Tolerated Activity: As Tolerated Driving: May Drive Today Showering/Bathing: May Shower Notify Provider of: Fever, Increased Pain, Nausea and/or Vomiting Other/Special Instructions: 1. Recheck with Dr. Lee 7-10 days. 2. Recheck with oncology July 04. Appointment already set up. 3. [facility]. Regarding Port-A-Cath site teaching, packing wound daily with iodoform strips and covering, medical management and cleaning wound. - Discharge Plan Home Medications: Home Meds Acetaminophen [Tylenol] 650 mg PO BID PRN 01/02/16 [History] Aspirin 325 mg PO BEDTIME 01/02/16 [History] Atenolol/Chlorthalidone [Atenolol-Chlorthalidone 100-25] 1 tab PO DAILY [History] Levothyroxine 75 mcg PO ACBREAKFAST 01/02/16 [History] Loperamide HCl [Imodium A-D] 2 mg PO ASDIRECTED PRN 01/02/16 [History] Losartan Potassium [Cozaar] 100 mg PO DAILY 01/02/16 [History] Lovastatin 20 mg PO BEDTIME 01/02/16 [History] LORazepam 0.5 mg PO BEDTIME PRN 05/29/16 [History] Multivitamins/Minerals/Lutein [Certavite SR with Lutein] 1 tab PO DAILY [History] Patient Handouts: Venous Thromboembolism Prevention - Discharge Summary/Plan Comment DC Time >30 min.: No - Patient Data Vitals - Most Recent: Last Vital Signs Temp 96.8 F 06/20/16 08:00 Pulse 65 06/20/16 08:06 Resp 18 06/20/16 08:00 BP 162/75 H 06/20/16 08:07 Pulse Ox 96 06/20/16 08:00 Weight - Most Recent: 175 lb 3.2 oz I&O - Last 24 hours: Intake & Output 06/20/16 06/21/16 06/21/16 22:59 06:59 14:59 Intake Total 130 80 Balance 130 80 Lab Results - Last 24 hrs: Laboratory Results - last 24 hr 06/21/16 Range/Units 06:02 POC Glucose 101 (80-116) mg/dL Med Orders - Current: Current Medications Acetaminophen/Codeine Phosphate (Tylenol With Codeine No.3 300mg/30mg) 2 tab PO Q6H PRN PRN Reason: shoulder pain Last Admin: 06/19/16 20:44 Dose: 2 tab Aspirin (Ecotrin) 325 mg PO BEDTIME [facility] Last Admin: 06/20/16 21:05 Dose: 325 mg Atenolol (Tenormin) 100 mg PO DAILY [facility] Last Admin: 06/20/16 08:06 Dose: 100 mg Betamethasone/Clotrimazole (Lotrisone) 0 gm TOP BID [facility] Last Admin: 06/20/16 21:06 Dose: 1 applic Chlorthalidone (Chlorthalidone) 25 mg PO DAILY [facility] Last Admin: 06/20/16 08:07 Dose: 25 mg Cholestyramine Resin (Cholestyramine Packet) 4 gm PO DAILY@1200 [facility] Last Admin: 06/20/16 14:01 Dose: 4 gm Diphenoxylate HCl/Atropine (Lomotil 0.025-2.5 Mg) 1 tab PO QID PRN PRN Reason: Diarrhea Last Admin: 06/01/16 20:50 Dose: 1 tab Heparin Sodium (Porcine) (Heparin Lock Flush 100 Units/Ml Syringe) 300 units FLUSH ASDIRECTED PRN PRN Reason: to keep vein open Last Admin: 06/19/16 08:38 Dose: 300 units Heparin Sodium (Porcine) (Heparin Lock Flush 100 Units/Ml Syringe) 300 units FLUSH Q8H [facility] Last Admin: 06/21/16 08:31 Dose: 300 units Sodium Chloride (Normal Saline) 250 mls @ 30 mls/hr IV ASDIRECTED [facility] PRN Reason: KVO Last Admin: 06/20/16 23:39 Dose: 100 mls/hr Cefazolin Sodium/Dextrose 2 gm (/ Premix) 50 mls @ 100 mls/hr IV Q8H [facility] Stop: 06/21/16 17:00 Last Admin: 06/21/16 07:36 Dose: 100 mls/hr Levothyroxine Sodium (Levothyroxine) 75 mcg PO DAILY@0600 [facility] Last Admin: 06/21/16 06:00 Dose: 75 mcg Lorazepam (Ativan) 0.5 mg PO BEDTIME PRN PRN Reason: Sleep Losartan Potassium (Cozaar) 100 mg PO DAILY [facility] Last Admin: 06/20/16 08:07 Dose: 100 mg Lovastatin (Mevacor) 20 mg PO BEDTIME [facility] Last Admin: 06/20/16 21:06 Dose: 20 mg Multivitamins/Minerals (Vitamins And Minerals) 1 tab PO DAILY [facility] Last Admin: 06/20/16 08:08 Dose: 1 tab Ondansetron HCl (Zofran Odt) 4 mg PO Q4H PRN PRN Reason: Nausea/Vomiting Last Admin: 05/30/16 18:00 Dose: 4 mg Ondansetron HCl (Zofran) 4 mg IVPUSH Q4H PRN PRN Reason: Nausea/Vomiting Saccharomyces Boulardii (Florastor) 250 mg PO TID [facility] Last Admin: 06/20/16 21:05 Dose: 250 mg Sodium Chloride (Saline Flush) 10 ml FLUSH ASDIRECTED PRN PRN Reason: Keep Vein Open Last Admin: 06/21/16 00:29 Dose: 10 ml Discontinued Medications Acetaminophen (Tylenol) 650 mg PO BID PRN PRN Reason: PAIN Last Admin: 06/02/16 17:36 Dose: 650 mg Acetaminophen/Codeine Phosphate (Tylenol With Codeine No.3 300mg/30mg) 2 tab PO QID PRN PRN Reason: Pain Last Admin: 06/03/16 00:39 Dose: 2 tab Betamethasone/Clotrimazole (Lotrisone) 0 gm TOP BID [facility] Last Admin: 06/17/16 09:00 Dose: 1 applic Hydromorphone HCl (Dilaudid) 0.5 mg IVPUSH Q2H PRN PRN Reason: Pain (severe 7-10) Last Admin: 06/04/16 07:36 Dose: 0.5 mg Hydromorphone HCl (Dilaudid) 1 mg IVPUSH Q2H PRN PRN Reason: Pain (severe 7-10) Hydromorphone HCl (Dilaudid) 2 mg PO Q4H PRN PRN Reason: bone pain Last Admin: 06/03/16 19:18 Dose: 2 mg Cefazolin Sodium 2 gm/ Sodium (Chloride) 100 mls @ 200 mls/hr IV Q8H [facility] Stop: 06/03/16 09:00 Last Admin: 06/03/16 08:28 Dose: 200 mls/hr Sodium Chloride (Normal Saline) 1,000 mls @ 100 mls/hr IV ASDIRECTED [facility] Lactated Ringer's (Ringers, Lactated) 1,000 mls @ 500 mls/hr IV ASDIRECTED [facility] Last Admin: 05/31/16 22:07 Dose: 500 mls/hr Lactated Ringer's (Ringers, Lactated) 1,000 mls @ 100 mls/hr IV ASDIRECTED [facility] Loperamide HCl (Imodium) 2 - 4 mg PO Q2H PRN PRN Reason: Diarrhea Last Admin: 05/31/16 06:48 Dose: 2 mg Nystatin (Nystatin Crm) 0 gm TOP BID [facility] Last Admin: 06/15/16 08:20 Dose: Not Given Saccharomyces Boulardii (Florastor) 250 mg PO TID [facility] Triamcinolone Acetonide (Oralone 0.1% Dental Paste) 0 gm DENT QID [facility] Last Admin: 06/15/16 08:21 Dose: Not Given *Q Meaningful Use (DIS) - VTE *Q VTE Criteria *Q: - Stroke *Q Stroke Criteria *Q: - AMI *Q AMI Criteria *Q:
[2016-06-21] MEDS: Losartan 100 MG Tab PO SCH (08:41)
[2016-06-21] MEDS: Chlorthalidone 25 MG Tab PO SCH (08:41)
[2016-06-21] MEDS: Betamethasone Dipropionate/Clotrimazole 0.05-1% Crm 45 GM Tube TOP SCH (08:42)
[2016-06-21] MEDS: Saccharomyces Boulardii (Probiotic) 250 MG Cap PO SCH ×2 (08:42→13:29)
[2016-06-21] MEDS: Multivitamins, Therapeutic with Minerals Tab PO SCH (08:43)
[2016-06-21 08:44] VITALS: BP 135/63
[2016-06-21] MEDS: Cholestyramine/Sucrose Powder 4 GM Packet PO SCH (13:29)
== END 2016-06-21 16:58 | disposition home health service (06) | DRG 289 ==
LOC: FB.MS 12:21
PROVIDERS: ADMIT Family Medicine; ATTEND Family Medicine
DX: I33.0 Acute and subacute infective endocarditis (principal); C79.9 Secondary malignant neoplasm of unspecified site; C18.0 Malignant neoplasm of cecum; I50.20 Unspecified systolic (congestive) heart failure; B95.62 Methicillin resistant Staphylococcus aureus infection as the cause of diseases classified elsewhere; E11.9 Type 2 diabetes mellitus without complications; E03.9 Hypothyroidism, unspecified; Z66 Do not resuscitate; I34.0 Nonrheumatic mitral (valve) insufficiency; I37.1 Nonrheumatic pulmonary valve insufficiency; I11.0 Hypertensive heart disease with heart failure; Z87.891 Personal history of nicotine dependence; Z96.653 Presence of artificial knee joint, bilateral; R19.7 Diarrhea, unspecified; M25.511 Pain in right shoulder; Z79.2 Long term (current) use of antibiotics; Z79.84 Long term (current) use of oral hypoglycemic drugs; Z88.7 Allergy status to serum and vaccine; Z88.8 Allergy status to other drugs, medicaments and biological substances; Z79.82 Long term (current) use of aspirin
CPT/HCPCS: 36415; 73030-RT; 80053; 82565; 82962; 83605; 84450; 85025; 86140; 87015; 87040; 87045; 87046; 87324; 87899; A9270; A9270-GY; J0690; J1170; J1642; J7030; J7050; J7120